=== PATIENT | male | born 1975 ===

== ENCOUNTER 2020-03-07 03:25 | Inpatient (IN) | payer OTHER ==
[~2020-03-07] VITALS: Ht 172.7 cm; Wt 86.6 kg
[2020-03-07 03:42] LABS: BASOPHILS ABSOLUTE AUTO 0.08 K/mm3 (0.00-0.23); BASOPHILS PERCENT AUTO 1 % (0-2); EOSINOPHILS ABSOLUTE AUTO 1.38 K/mm3 (0.00-0.68); EOSINOPHILS PERCENT AUTO 10 % (0-6); Hematocrit 44.8 % (37.0-53.0); Hemoglobin 14.9 g/dL (13.5-17.5); IMMATURE GRAN ABSOLUTE AUTO 0.05 K/mm3 (0.00-0.10); IMMATURE GRAN PERCENT AUTO 0 % (0-1); LYMPHOCYTES ABSOLUTE AUTO 3.06 K/mm3 (0.84-5.20); LYMPHOCYTES PERCENT AUTO 23 % (21-46); MONOCYTES ABSOLUTE AUTO 0.87 K/mm3 (0.16-1.47); MONOCYTES PERCENT AUTO 7 % (4-13); Mean Corpuscular HGB 32.5 pg (26.0-34.0); Mean Corpuscular HGB Conc 33.3 g/dL (31.5-36.5); Mean Corpuscular Volume 98 fL (80-100); Mean Platelet Volume 10.5 fL (9.1-12.4); NEUTROPHILS ABSOLUTE AUTO 7.95 K/mm3 (1.96-9.15); NEUTROPHILS PERCENT AUTO 59 % (41-73); Platelet Count 281 K/mm3 (150-400); RDW Coefficient Variation 13.3 % (11.7-14.2); RDW Standard Deviation 47.7 fL (35.1-46.3); Red Blood Cell Count 4.58 M/mm3 (4.30-5.90); White Blood Cell Count 13.39 K/mm3 (4.00-11.30)
[2020-03-07 03:52] LABS: Source, Urine Clean Catch
[2020-03-07 03:56] LABS: Alanine Aminotransfer (ALT/SGP 25 U/L (12-78); Albumin, Blood 3.2 g/dL (3.4-5.0); Alk Phos 71 U/L (50-136); Anion Gap 10 mmol/L (6-16); Aspartate Aminotrans (AST/SGOT 26 U/L (12-37); Beta HCG, Quantitative, Serum <1 mIU/mL (0-1); Bilirubin, Total 0.6 mg/dL (0.1-1.0); Blood Urea Nitrogen 13 mg/dL (8-24); Bun/Creatinine Ratio 17.2 (12.0-20.0); CO2, Blood 21 mmol/L (21-32); Calcium, Blood 7.9 mg/dL (8.5-10.1); Chloride, Blood 112 mmol/L (98-108); Creatinine, Blood 0.76 mg/dL (0.60-1.20); Ethanol (Alcohol), Blood, Med 52 mg/dL; Globulin, Blood 3.2 g/dL (2.2-4.0); Glomerular Filtration Rate >60 (60-); Glucose, Blood 118 mg/dL (70-99); Potassium, Blood 3.4 mmol/L (3.5-5.5); Sodium, Blood 143 mmol/L (136-145); Total Protein, Blood 6.4 g/dL (6.4-8.2)
[2020-03-07 03:56] LABS: Bilirubin, Urine Neg (Neg); Blood, Urine 1+ (Neg); Glucose Qualitative, Urine Neg (Neg); Ketones, Urine 2+ (Neg); Leukocyte Esterase, Urine Neg (Neg); Nitrite, Urine Neg (Neg); Protein, Urine 2+ (Neg); Specific Gravity, Urine 1.025 (1.003-1.022); Urobilinogen, Urine 1+ (Normal)
[2020-03-07 03:57] LABS: International Normalized Ratio 0.98; Prothrombin Time Results 10.5 Sec (9.7-11.5)
[2020-03-07 04:06] LABS: Appearance, Urine Clear (Clear); Color, Urine Yellow (P-Yellow)
[2020-03-07 04:07] LABS: Amorphous Light (0-Heavy); Bacteria Not Seen /hpf; Mucus Light (0-Heavy); Squamous Epithelial Cells Not Seen /hpf (Few); White Blood Cells, Urine Not Seen /hpf (0-5)
[2020-03-07 05:24] LABS: U Amphetamine Screen Not Detected; U Barbituate Screen Not Detected; U Benzodiazapine Screen Not Detected; U Buprenorphine Screen Not Detected; U Cannabinoids Screen DETECTED; U Cocaine Screen DETECTED; U Methadone Screen Not Detected; U Methamphetamine Screen Not Detected; U Opiates Screen Not Detected; U Oxycodone Screen Not Detected; U Phencyclidine Screen Not Detected; U Propoxyphene Screen Not Detected
--- NOTE | 2020-03-07 06:39 | NUR ---
PATIENT ARRIVED FROM ER VIA STRETCHER. PATIENT TRYING TO PULL TUBES AND SIT UP; PROPOFOL DRIP UP TO 70MCG/KG/MIN. PATIENT LIFTED TO ICU BED BY FIVE STAFF MEMBERS WITH C-SPINE PRECAUTIONS MAINTAINED. PATIENT INTUBATED AND CONNECTED TO VENTILATOR BY RESPIRATORY THERAPY. OGT CONNECTED TO LIWS. ALMONTE CATH. PATENT DRAINING CLEAR, YELLOW URINE. BILATERAL WRIST RESTRAINTS IN PLACE TO PREVENT PATIENT FROM PULLING OUT TUBES. PRECEDEX DRIP STARTED AT 0.7MCG/KG/HR. PATIENT HOOKED UP TO MONITOR. HR 150'S, ATRIAL FIB.; BP STABLE. REPORT GIVEN TO RAVEN ARGUELLO WHO WILL ASSUME CARE.
--- NOTE | 2020-03-07 07:43 | NUR ---
Received report from Ana CARBAJAL. Patient intubated and sedated. He has 7.5 ET and 25cm at teeth, vent settings AC 16, TV 450, FiO2 40% PEEP 5.0 and sats >90%. He has 18ga LH dressing intact and site WNL's and is flushed and SL'd. He also has 20ga IV in RW dressing intact and site WNL's and is infusing Propofol at 70 mcg/kg/min and Precedex 0.7 mcg/kg/hr and is presently calm, tried to wean and started fight in bed and reincreased to starting dose.He has 16Fr temp farley draining to gravity and temp in 97.8. MAEW. C -Collar in place and won't be cleared until post extubation to see if patient c/o neck pain per Dr Gupta. He is in bilateral soft wrist restraints for line and tube safety. He has bite make midline forehead and Dr Gupta starting on ABX and no current bleeding with mild swelling.
--- NOTE | 2020-03-07 09:37 | NUR ---
Patient remains sedated and intubated. Added Phenylepherine titrated up to 60 mcg/min for current systolic 113 and MAP >65. Propofol at 70 mcg/kg/min and Precedex at 0.7 mcg/kg/hr and patient resting well. He remains in A-Fib rate 110-140's. No vent setting changes and sats >95%.
--- NOTE | 2020-03-07 11:44 | NUR ---
gifts officer came to ICU with warrant for bodily search and blood drawn and bodily swabs as per warrant and copy on chart. No changes with vent, gtt setting and he continues to rest with sedation. VSS. See EMR
--- NOTE | 2020-03-07 13:30 | NUR ---
plaster whittler placed PICC line SHELBY. Moved lines to PICC. Propofol remains at 70 mcg/kg/min, Phenylepherine 60 mcg/min, and Precedex at 0.7 mcg/kg/hr. Temp on the increase 100.4 and he is diaphoretic. No signs of grimacing or pain. No vent setting changes, patient continues to have moderate thick secretions through ET. VSS, See EMR.
--- NOTE | 2020-03-07 16:33 | NUR ---
Patient continues to have 100,8 temp and diaphoresis and called Dr Vines and EKG done, troponins, lorazepam 4mg ordered. No real changes in VS and no chnages in vent or gtt setting except Precedex on standby to see in causing temp increase.
--- NOTE | 2020-03-07 18:25 | NUR ---
No changes in patient. Remains on Vent settings AC 16, TV 450, FiO2, PEEP 5.0 and sats >90%. PICC NORY Phenylepherine 60 mcg/min, Propofol at 70 mcg/kg/min and Precedex is on standby for increased temp, and has come down to 99.5 since off. He has 16fr Temp farley that has had 2600ml yellow urine. Ice packs have been in groin and arm pits for last 4 hours. Patient remains in C-collar and is supine in bed.
--- NOTE | 2020-03-07 19:00 | NUR ---
ASSUMED CARE OF PATIENT. RECEIVED REPORT FROM RAVEN ARGUELLO. PATIENT REMAINS INTUBATED ON VENTILATOR; SEDATED WITH PROPOFOL AT 70MCG/KG/MIN; PRECEDEX ON STAND-BY. RHYTHM: ATRIAL FIB., 110'S; MARIANNA DRIP ON 60MCG/MIN TO MAINTAIN MAP >65. BILATERAL WRIST RESTRAINTS IN PLACE TO PREVENT PATIENT PULLING LINES/TUBES. C-COLLAR IN PLACE. ALMONTE CATH. PATENT DRAINING CLEAR, YELLOW URINE. CONTINUE POC.
--- NOTE | 2020-03-07 20:15 | NUR ---
CALLED DR. HOGAN TO REQUEST ORDERS FOR PRN TYLENOL, PRN ATIVAN, AND IV FLUIDS; REC'D. ABOVE ORDERS.
--- NOTE | 2020-03-07 22:34 | NUR ---
PATIENT APPEARS TO BE USING ACCESSORY MUSCLES WITH RESPIRATIONS, TACHYPNEIC, SATS 91% ON FIO2 OF 35%. PATIENT SUCTIONED WITH COPIOUS AMOUNTS OF THICK, WHITE SECRETIONS OBTAINED; PATIENT BECAME RED IN THE FACE AND COUGHING FOR ABOUT FIVE MINUTES AFTER SUCTIONING; PATIENT GIVEN 100% FIO2 DURING EPISODE. PRECEDEX DRIP TURNED BACK ON AT 0.4MCG/KG/HR AND PATIENT GIVEN ATIVAN 2MG IV FOR SEDATION. BREATH SOUNDS AUSCULTATED AFTER SUCTIONING-PATIENT HAS SCATTERED RHONCHI WITH EXPIRATORY WHEEZES IN UPPER LOBES. RT CALLED AND AT BEDSIDE; RT RECOMMENDATION IS FOR NEBULIZER TREATMENTS. CALLED DR. HOGAN; UPDATED ON ABOVE; REC'D. ORDER FOR ALBUTEROL NEBULIZER TREATMENTS. FIO2 TURNED UP TO 40%.
[2020-03-08 04:05] LABS: BASOPHILS ABSOLUTE AUTO 0.09 K/mm3 (0.00-0.23); BASOPHILS PERCENT AUTO 0 % (0-2); EOSINOPHILS ABSOLUTE AUTO 0.43 K/mm3 (0.00-0.68); EOSINOPHILS PERCENT AUTO 2 % (0-6); Hematocrit 47.3 % (37.0-53.0); Hemoglobin 15.5 g/dL (13.5-17.5); IMMATURE GRAN ABSOLUTE AUTO 0.09 K/mm3 (0.00-0.10); IMMATURE GRAN PERCENT AUTO 0 % (0-1); LYMPHOCYTES ABSOLUTE AUTO 3.77 K/mm3 (0.84-5.20); LYMPHOCYTES PERCENT AUTO 19 % (21-46); MONOCYTES ABSOLUTE AUTO 1.55 K/mm3 (0.16-1.47); MONOCYTES PERCENT AUTO 8 % (4-13); Mean Corpuscular HGB 32.6 pg (26.0-34.0); Mean Corpuscular HGB Conc 32.8 g/dL (31.5-36.5); Mean Corpuscular Volume 100 fL (80-100); Mean Platelet Volume 10.7 fL (9.1-12.4); NEUTROPHILS ABSOLUTE AUTO 14.45 K/mm3 (1.96-9.15); NEUTROPHILS PERCENT AUTO 71 % (41-73); Platelet Count 271 K/mm3 (150-400); RDW Coefficient Variation 13.3 % (11.7-14.2); RDW Standard Deviation 49.9 fL (35.1-46.3); Red Blood Cell Count 4.75 M/mm3 (4.30-5.90); White Blood Cell Count 20.38 K/mm3 (4.00-11.30)
[2020-03-08 04:32] LABS: Alanine Aminotransfer (ALT/SGP 24 U/L (12-78); Albumin/Globulin Ratio 0.9 (0.8-1.8); Alk Phos 60 U/L (50-136); Anion Gap 5 mmol/L (6-16); Aspartate Aminotrans (AST/SGOT 34 U/L (12-37); Bilirubin, Total 0.9 mg/dL (0.1-1.0); Blood Urea Nitrogen 7 mg/dL (8-24); Bun/Creatinine Ratio 10.4 (12.0-20.0); CO2, Blood 28 mmol/L (21-32); Calcium, Blood 8.2 mg/dL (8.5-10.1); Chloride, Blood 112 mmol/L (98-108); Creatinine, Blood 0.67 mg/dL (0.60-1.20); Globulin, Blood 3.3 g/dL (2.2-4.0); Glomerular Filtration Rate >60 (60-); Glucose, Blood 115 mg/dL (70-99); Phosphorus, Blood 3.6 mg/dL (2.5-4.9); Potassium, Blood 4.2 mmol/L (3.5-5.5); Sodium, Blood 145 mmol/L (136-145); Total Protein, Blood 6.3 g/dL (6.4-8.2)
--- NOTE | 2020-03-08 06:36 | NUR ---
SHIFT SUMMARY: PATIENT REMAINS INTUBATED AND SEDATED ON PROPOFOL 70 MCG/KG/MIN AND PRECEDEX 0.7 MCG/KG/HR; GIVEN ONE DOSE OF PRN ATIVAN 2 MG IV. MARIANNA DRIP AT 40 MCG/MIN WITH MAP >65. RHYTHM ATRIAL FIB., RATE 100-140'S. PATIENT SPIKED TEMP. OF 100.8; GIVEN TYLENOL 650 MG PGT. ENTERAL FEEDINGS STARTED LAST NIGHT; VITAL HIGH PROTEIN, AT GOAL 0F 35 CC/HR; ABDOMEN SLIGHTLY DISTENDED, SOFT WITH ACTIVE BOWEL SOUNDS. ALMONTE CATH. PATENT DRAINING CLEAR, YELLOW URINE. PATIENT GIVEN ONE LITRE OF LR IV FLUID OVER FIVE HOURS. BILATERAL WRIST RESTRAINTS IN PLACE TO PREVENT PATIENT FROM PULLING LINES/TUBES. C-COLLAR IN PLACE; C-SPINE PRECAUTIONS MAINTAINED. LABS DRAWN THIS AM AND PORTABLE CXR DONE. AWAITING DAYSHIFT RN FOR HANDOFF.
--- NOTE | 2020-03-08 07:34 | NUR ---
Receieved report from Ana CARBAJAL. Patient in reverse trendelenberg position intubated and sedated. His vent settings are 7.5 ET 25 cm at teeth, AC 16, TV 450, FiO2 25%, PEEP 5.0 and sats 94%. He has LUAQ PICC dressing intact and site WNL's and is infusing Propofol at 70 mcg/kg/min, Phenylepherine at 60 mcg/min, Precedex at 0.7 mcg/kg/hr. He has 16Fr Temp Baptiste draing to gravity yellow urine and temp of 100.8. OG in place infusing VHP at goal 35ml/hr and 30 ml water flush q4. EMS C-Collar in place until patient awakens to verbalize no pain. He also has 18ga IV LH and 20ga IV RW both flushed and SL'd. He is in bilateral soft wrist restraints for line and tube safety.
--- NOTE | 2020-03-08 09:46 | NUR ---
Patient remains sedated. Phenylepherine reduced to 20mcg/min for systolics 140's. Propofol reduced to 60mcg/kg/min, Precedex remains at 0.7 mcg/kg/hr. No vent setting changes and continue to suction intermitent copius amounts of thick headley secretions, Received different C-Collar and ok with Dr Gupta to change sout for more comfort.
--- NOTE | 2020-03-08 11:30 | NUR ---
Patient continues on sedation, Phenylepherine at 20mcg/min with systolics 90-100's,l HR 120-140's and Dr Vines knows.No vent setting changes. Continues to have moderate secretions and has coughing spells and calms quickly. Sats 95>
--- NOTE | 2020-03-08 15:30 | NUR ---
Pushed 20mg Diltiazem and HR dropped to 70's and remains for about an hour before starting to increase. No changes in Vent setting and Current Phenylepherine is at 30 mcg/min with systolics 120's, no other gtt changes.
--- NOTE | 2020-03-08 16:48 | NUR ---
Patient remains intubated and sedated with 60 mcg/kg/min Propofol and 0.7 mcg/kg/hr of Precedex. Phenylepherine is titrating back and forth from 20-40 mcg/min to maintain systolic >100 and HR 120-[address] Vines and we are going to try 20mg Diltiazem push. Tube feeding VHP continues and increased to 40ml/hr goal with 40 ml residual re infused.. Baptiste continues to have yellow urine out put. Gave Tylenol and temp decreaseing to 99.5.
--- NOTE | 2020-03-08 18:43 | NUR ---
Started Diltiazem Gtt at 10 mg/hr for HR 140's. Vent settings AC 16, TV 450. FiO2 30%, PEEP 5.0. SHELBY PICC infusing Propofol 60mcg/kg/min, Precedex 0.7 mcg/kg/hr, Phenylepherine 30 mcg/min, NS TKO. 16Fr temp Baptiste 1350 yellow urine out and temp has decresed to 97.9.. Remains in A-fib 80's and Diltiazem gtt at 15 mg/hr. He remains in bilateral soft wrist restraints.
--- NOTE | 2020-03-08 19:00 | NUR ---
ASSUMED CARE OF PATIENT. REC'D. REPORT FROM RAVEN ARGUELLO. PATIENT REMAINS INTUBATED AND SEDATED ON PROPOFOL AT 60 MCG/KG/MIN AND PRECEDEX AT 0.7 MCG/KG/HR. RHYTHM: ATRIAL FIB.; DILTIAZEM DRIP INFUSING AT 15MG/HR AND MARIANNA DRIP INFUSING AT 30 MCG/MIN WITH MAP >65. BILATERAL WRIST RESTRAINTS IN PLACE TO PREVENT PATIENT FROM PULLING LINES/TUBES. TUBE FEEDINGS, VITAL HIGH PROTEIN, INFUSING AT 40 CC/HR. CONTINUE CURRENT POC.
--- NOTE | 2020-03-09 03:50 | NUR ---
PATIENT RHYTHM CONVERTED TO SINUS RHYTHM, RATE 90'S. PATIENT REMAINS ON DILTIAZEM AT 5MG/HR IV.
[2020-03-09 04:07] LABS: BASOPHILS ABSOLUTE AUTO 0.08 K/mm3 (0.00-0.23); BASOPHILS PERCENT AUTO 1 % (0-2); EOSINOPHILS ABSOLUTE AUTO 0.92 K/mm3 (0.00-0.68); EOSINOPHILS PERCENT AUTO 5 % (0-6); Hematocrit 46.6 % (37.0-53.0); Hemoglobin 15.5 g/dL (13.5-17.5); IMMATURE GRAN ABSOLUTE AUTO 0.06 K/mm3 (0.00-0.10); IMMATURE GRAN PERCENT AUTO 0 % (0-1); LYMPHOCYTES ABSOLUTE AUTO 2.88 K/mm3 (0.84-5.20); LYMPHOCYTES PERCENT AUTO 17 % (21-46); MONOCYTES ABSOLUTE AUTO 1.21 K/mm3 (0.16-1.47); MONOCYTES PERCENT AUTO 7 % (4-13); Mean Corpuscular HGB 32.7 pg (26.0-34.0); Mean Corpuscular HGB Conc 33.3 g/dL (31.5-36.5); Mean Corpuscular Volume 98 fL (80-100); Mean Platelet Volume 11.1 fL (9.1-12.4); NEUTROPHILS ABSOLUTE AUTO 11.89 K/mm3 (1.96-9.15); NEUTROPHILS PERCENT AUTO 70 % (41-73); Platelet Count 242 K/mm3 (150-400); RDW Coefficient Variation 13.2 % (11.7-14.2); RDW Standard Deviation 48.6 fL (35.1-46.3); Red Blood Cell Count 4.74 M/mm3 (4.30-5.90); White Blood Cell Count 17.04 K/mm3 (4.00-11.30)
[2020-03-09 04:21] LABS: Anion Gap 4 mmol/L (6-16); Blood Urea Nitrogen 9 mg/dL (8-24); Bun/Creatinine Ratio 13.1 (12.0-20.0); CO2, Blood 27 mmol/L (21-32); Chloride, Blood 113 mmol/L (98-108); Creatinine, Blood 0.69 mg/dL (0.60-1.20); Glomerular Filtration Rate >60 (60-); Glucose, Blood 132 mg/dL (70-99); Potassium, Blood 3.6 mmol/L (3.5-5.5); Sodium, Blood 144 mmol/L (136-145)
--- NOTE | 2020-03-09 06:34 | NUR ---
SHIFT SUMMARY: PATIENT REMAINS INTUBATED AND SEDATED WITH PROPOFOL AT 70MCG/KG/MIN AND PRECEDEX 0.7MCG/KG/HR. RESPIRATIONS 25-30 ON VENT SETTINGS OF AC 16, TV 450, PEEP 5, AND FIO2 25%; MEDICATED WITH ATIVAN 2MG IV X 2 DOSES FOR TACHYPNEA; BREATH SOUNDS WITH RHONCHI OVER BILATERAL UPPER LOBES AND DIMINISHED IN BASES. RHYTHM CONVERTED TO SINUS RHYTHM AT 0350; CARDIZEM DRIP AT 5MG/HR. MARIANNA. DRIP AT 30MCG/MIN WITH MAP >65. ENTERAL FEEDINGS VIA OG WITH VITAL HIGH PROTEIN AT 40CC/HR WITH WATER FLUSHES OF 30CC Q4H; RESIDUALS 10CC; ABDOMEN SLIGHTLY DISTENDED WITH TYMPANIC BOWEL SOUNDS; SMALL SMEAR OF STOOL. ALMONTE CATH. PATENT DRAINING SANDIP URINE WITH FLECKS OF RED/ORANGE NOTED IN TUBING. C-COLLAR IN PLACE WITH C-SPINE PRECAUTIONS MAINTAINED. BILATERAL WRIST RESTRAINTS IN PLACE TO PREVENT PULLING LINES/TUBES. CONTINUE POC. AWAITING DAY SHIFT RN FOR HANDOFF.
--- NOTE | 2020-03-09 08:05 | NUR ---
Received report from Ana CARBAJAL. Patient in reverse trendelenberg position, approx. 20 degrees. He is intubated and sedated and vent settings AC 16, TV 450, FiO2 30% PEEP 5 and sats >95%. He has copius amounts of thisck headley secretion from ET. He has PICC line to SHELBY and and dressing intact and site WNL's and is infusing Propofol 70 mcg/kg/min. Precedex 0.7 mcg/kg/hr, Phenylepherine 30 mcg/min, Diltiazem 5 mg/m/hr, NS TKO. OG in place and is infusing VHP at 40 ml/hr with 30 ml water flushes q4hr.He has two IV's LH and RW dressings intact and sites WNL's and have been flushed and SL'd. He is in soft bilateral wrist restraints. C-collar in place and will remains until extubation. He has 16Fr Temp farley draining to gravity light dai colored urine and temp. 99.5 degrees F.
--- NOTE | 2020-03-09 09:30 | NUR ---
Dr Najera by and gave update. No changes with vent or gtt's. On current vent setting sats >95%. Patient remains in SR from Noc shift conversion.
--- NOTE | 2020-03-09 10:13 | NUR ---
Placed Propofol and Cardizem on hold as per Dr Najera. Increased Precedex to 1.4 mcg/kg/hr per Dr Najera for test wean. He is on Spon. mode and PS 10 FiO2 25% with sats >94%. no current movements from him as of yet.
--- NOTE | 2020-03-09 11:58 | NUR ---
PS reduced to 5 and no other changes. Propofol remains on standby and he is able to follow commands, and is calm and cooperating with care. VSS, See EMR. Precedex remains at 1.4 mcg/kg/hr, Diltiazem remains on standby. TF continues at 40ml/hr of VHP.
--- NOTE | 2020-03-09 12:35 | NUR ---
Patient has been on spontaneous mode for awhile and tolerated well. He was extubated at 1230 and placed on 4 L O2 via NC and sats >95%. Restraints left on as he was pulling at farley and lines. Phenylepherine on standby and systolic 120's and ST 110-120's.
--- NOTE | 2020-03-09 12:43 | NUR ---
Dr Najera had Erich Mckenzie RN call and find out what is the rights r/t HIPAA (Health Insurance Portability & Accountability Act) in regards to Peace officers request to notified for them to talk with patient as they have called twice daily. Call was made to Hong Henderson and stated that they would need warrant to get patient information and made call as requested by Hong Henderson communicated to Dr Najera and Erich Mckenzie RN to me to see if they had warrant. The answer was "No" by [employer] manager marketing communication. Officer Mai called for his daily check, and told him that he would need a warrant per our policy of HIPAA and he stated he understood. Two officers came by to check on patient to see if they could interview and talked with him briefly on camera. Patiet stated it was ok to talk with staff and release medical information to law enforcement officers and talked with Dr Najera. Officers stated they would come back in around 30 minutes and ask the patient once again to verify that his mental status is clear enough to make that decision. Anastacia Oreilly RN and Dr Najera present at time of this encounter. Patient now resting quietly.
--- NOTE | 2020-03-09 14:00 | NUR ---
Patient has been rest and reduced to RA and sats >94%. He is very hoarse with speech and breathing. VSS, See EMR. He has NS TKO and Precedex 1.4 mcg/kg/hr. He has mostly been cooperative with care to best of his ability. His mother and father both called. Peace officers have not been back.We will continue farley until patient is a little clearer. He remains in bilateral soft wrist until clearer and stops pulling at lines and farley. MAEW but weak.
--- NOTE | 2020-03-09 15:52 | NUR ---
Patient resting. Mother is coming into see him. Repositioned. C-collar stays in place until am when surgeon clears.Bilateral soft wrist restraints remains for line and tube safety. He is able ot communicate his needs with soft hoarse voice. Precedex 1.4 mcg/kg/hr and NS TKO.
--- NOTE | 2020-03-09 18:50 | NUR ---
Mother at bedside. He is on RA and sats 96%. He has C-collar in place until Dr Gupta states OK to remove. 16 [address] temp [address]ley in place draining to gravity and temp 99.5. He remains in restraints until fully awake and is not pulling at lines and tubes. He is on Precedex at 1.4 mcg/kg/hr and just reduced to 10 mcg/kg/hr. He is able to communicate his needs with very hoarse voice.
--- NOTE | 2020-03-09 20:00 | NUR ---
PATIENT AWAKE VOICE HORSE AND DIFFICULT TO UNDERSTAND AT TIMES, ORIENTATED TO PERSON ONLY THINKING THAT HE IS AT THE " [place] " PLAN TO CONTINUE TO REORIENT PATIENT ABLE, PATIENT GETTING RESTLESS AT TIMES PULLING AT Collar AND LINES. BILAT WRIST RESTRAINTS IN PLACE TO PROTECT LINES, TUBES, AND Collar. PRECEDEX DRIP CONTINUES TO HELP PATIENT RELAX. MOIST COUGH WITH COARSE WHEEZES, PRODUCING THICK ROWLAND SPUTUM.
--- NOTE | 2020-03-09 21:36 | NUR ---
DOCTOR SAMSON IN TO SEE PATIENT, REMOVED C-COLLAR. PATIENT CONTINUES TO BE AGITATED OFF AND ON. PRECEDEX CONTINUES.
--- NOTE | 2020-03-10 00:49 | NUR ---
SPEECH IS GETTING CLEARER AND PATIENT MORE RELAXED, CONTINUES TO SPONTANEOUSLY PULL AT LINES AND CORDS WHEN UPSET. LUNG SOUND WITH EXP WHEEZES T/O RT CALLED FOR UDN. CONTINUES TO HAVE MOIST COUGH WITH THICK ROWLAND SPUTUM.
[2020-03-10 04:29] LABS: BASOPHILS ABSOLUTE AUTO 0.08 K/mm3 (0.00-0.23); BASOPHILS PERCENT AUTO 1 % (0-2); EOSINOPHILS PERCENT AUTO 7 % (0-6); Hematocrit 40.1 % (37.0-53.0); Hemoglobin 13.6 g/dL (13.5-17.5); IMMATURE GRAN ABSOLUTE AUTO 0.06 K/mm3 (0.00-0.10); IMMATURE GRAN PERCENT AUTO 1 % (0-1); LYMPHOCYTES ABSOLUTE AUTO 2.51 K/mm3 (0.84-5.20); LYMPHOCYTES PERCENT AUTO 20 % (21-46); MONOCYTES ABSOLUTE AUTO 0.94 K/mm3 (0.16-1.47); MONOCYTES PERCENT AUTO 7 % (4-13); Mean Corpuscular HGB 33.3 pg (26.0-34.0); Mean Corpuscular HGB Conc 33.9 g/dL (31.5-36.5); Mean Corpuscular Volume 98 fL (80-100); NEUTROPHILS ABSOLUTE AUTO 8.37 K/mm3 (1.96-9.15); NEUTROPHILS PERCENT AUTO 65 % (41-73); Platelet Count 211 K/mm3 (150-400); RDW Coefficient Variation 13.1 % (11.7-14.2); Red Blood Cell Count 4.09 M/mm3 (4.30-5.90); White Blood Cell Count 12.86 K/mm3 (4.00-11.30)
[2020-03-10 04:44] LABS: Anion Gap 6 mmol/L (6-16); Blood Urea Nitrogen 6 mg/dL (8-24); Bun/Creatinine Ratio 9.1 (12.0-20.0); CO2, Blood 26 mmol/L (21-32); Calcium, Blood 7.6 mg/dL (8.5-10.1); Chloride, Blood 110 mmol/L (98-108); Creatinine, Blood 0.66 mg/dL (0.60-1.20); Glomerular Filtration Rate >60 (60-); Glucose, Blood 94 mg/dL (70-99); Potassium, Blood 3.1 mmol/L (3.5-5.5); Sodium, Blood 142 mmol/L (136-145)
--- NOTE | 2020-03-10 08:39 | NUR ---
ASSUMED CARE OF PT AT 0700. REPORT FROM KASSIE CARBAJAL. PT RESTING IN BED. WAKES c VERBAL STIMULI. A&OX 3. ANSWERS QUESTIONS APPROPRIATELY. FOLLOWS SIMPLE COMMANDS. APPEARS TO FALL ASLEEP WHEN UNDISTURBED. PT C/O BACK PAIN, STATES PAIN 10/10. DENIES CHRONIC PAIN. MEDICATED c FENTANYL PRN. PRECEDEX INFUSING AT 0.5 MCG/KG/HR. WILL MONITOR FOR ETOH WITHDRAWLS. LUNGS COARSE c EXPIRATORY WHEEZES. PRODUCTIVE COUGH, ROWLAND SPUTUM. ABLE TO MANAGE SECRETIONS. PT ABLE TO REPOSITION SELF INDENDENTLY IN BED. VSS. ALMONTE PATENT AND DRAINING SANDIP URINE TO GRAVITY. WILL CONTINUE TO MONITOR.
--- NOTE | 2020-03-10 16:45 | NUR ---
SHIFT SUMMARY/TRANSFER TO MEDICAL FLOOR PT STATUS CHANGED TO MED c TELE THIS SHIFT. CRITICAL CARE SIGNED OFF. PT A&OX 3. ANSWERS QUESTIONS APPROPRIATELY. USES CALL LIGHT. ABLE TO MAKE NEEDS KNOWN. WORKED c PHYSICAL THERAPY TODAY. PT RELUCANT TO GET OUT OF BED D/T BACK PAIN. STATES PAIN 10/10. DENIES RELIEF FROM FENTANYL, ATIVAN OR TYLENOL. DENIES CHRONIC BACK PAIN. ENCOURAGED PT TO MOVE. PT ABLE TO STAND AND TRANSFER INDEPENDENTLY TO BATHROOM IN ROOM. GAGE FRANKEL REMOVED THIS SHIFT. VSS. REPORT TO SNEHA CARBAJAL. PENDING TRANSFER TO MEDICAL FLOOR. NO BELONGINGS IN ROOM. PT'S DRIVERS LICENSE ON CHART.
--- NOTE | 2020-03-10 17:37 | NUR ---
PT ARRIVED TO THE MEDICAL FLOOR FROM THE ICU, A/OX3, COOPERATIVE, PT WAS UP WITH ASSIST TO THE BED, PT REPORTED 10/10 PAIN IN HIS BACK AND NECK, ADVIL GIVEN, THE PT WAS ORIENTED TO THE ROOM LAYOUT AND CALL SYSTEM, PT WAS ASSISTED IN CALLING HIS MOTHER, SUCTION WAS SET UP AT THE BEDSIDE, PT HAS A WET LOOSE PRODUCTIVE COUGH AT TIMES, CALL LIGHT IN REACH, RASHAD IS AT THE DOORWAY
--- NOTE | 2020-03-10 19:35 | NUR ---
ASSUMED CARE. MOTHER IS AT BEDSIDE. PATIENT REPORTS PAIN ALL OVER 10/10. DOES NOT APPEAR IN ANY DISCOMFORT, ABLE TO TALK AND MOVE WITH OUT MOANING OR GRIMACING. LUNG SOUNDS COURSE WITH WHEEZES IN UPPER LOBES. COUGH PRODUCTIVE WHITE THICK SPUTUM. HR SINUS AT THIS TIME. ABLE TO STATE ORIENTATION. STATES SWALLOWING IS GETTING BETTER, BUT STILL FEELS SORE. VOICE IS SCRATCHY. SUCTION IS AT BEDSIDE. GAVE OJ PER PT REQUEST. WILL CALL MD REGARDING PAIN MANAGMENT. CALL LIGHT IN REACH.
--- NOTE | 2020-03-10 19:55 | NUR ---
SPOKE TO CAESAR VYAS TO GET ORDER FOR PAIN MEDICATION. JOSE ORDERED.
--- NOTE | 2020-03-10 22:27 | NUR ---
ATIVAN GIVEN FOR INCREASE IN ANXIETY AND HULLUCINATIONS.
--- NOTE | 2020-03-11 01:11 | NUR ---
SPOKE TO DR. MONTANO REGARDING PAIN MANAGMENT AND SLEEP. INFORMED OF HULLUCIANTIONS AND THAT THE PATIENT IS REQUESTING BETTER PAIN MEDS. ORDER FOR FENTANYL AND MELATONIN ORDERED. GAVE 50 OF FENTANYL.
[2020-03-11 04:27] LABS: Hematocrit 42.7 % (37.0-53.0); Hemoglobin 14.4 g/dL (13.5-17.5); Mean Corpuscular HGB 32.5 pg (26.0-34.0); Mean Corpuscular HGB Conc 33.7 g/dL (31.5-36.5); Mean Corpuscular Volume 96 fL (80-100); Mean Platelet Volume 10.6 fL (9.1-12.4); Platelet Count 275 K/mm3 (150-400); RDW Coefficient Variation 12.7 % (11.7-14.2); Red Blood Cell Count 4.43 M/mm3 (4.30-5.90); White Blood Cell Count 10.78 K/mm3 (4.00-11.30)
[2020-03-11 04:45] LABS: Alanine Aminotransfer (ALT/SGP 36 U/L (12-78); Albumin, Blood 2.9 g/dL (3.4-5.0); Albumin/Globulin Ratio 0.7 (0.8-1.8); Alk Phos 58 U/L (50-136); Anion Gap 4 mmol/L (6-16); Aspartate Aminotrans (AST/SGOT 47 U/L (12-37); Bilirubin, Total 1.4 mg/dL (0.1-1.0); Blood Urea Nitrogen 6 mg/dL (8-24); Bun/Creatinine Ratio 8.9 (12.0-20.0); CO2, Blood 28 mmol/L (21-32); Calcium, Blood 8.8 mg/dL (8.5-10.1); Chloride, Blood 110 mmol/L (98-108); Creatinine, Blood 0.68 mg/dL (0.60-1.20); Globulin, Blood 4.2 g/dL (2.2-4.0); Glomerular Filtration Rate >60 (60-); Glucose, Blood 93 mg/dL (70-99); Magnesium, Blood 1.9 mg/dL (1.6-2.4); Potassium, Blood 3.6 mmol/L (3.5-5.5); Sodium, Blood 142 mmol/L (136-145); Total Protein, Blood 7.1 g/dL (6.4-8.2)
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
--- NOTE | 2020-03-11 15:41 | NUR ---
PT IS A/OX3, COOPERATIVE, THE PT IS UP IND IN HIS ROOM, THE PT APPEARS TO BE BREATHING EASILY ON RA AT THIS TIME, PT CONTINUES TO HAVE A LOOSE PRODUCTIVE COUGH, PT HAS SUCTION AT THE BEDSIDE, THE PT CONTINUES TO REPORT PAIN 10/1O T/O OUT THE DAY IN HIS BACK AND HIS NECK, THE PT WORKED WITH THE PHYSICAL THERAPIST TODAY, DECLINED THE OCCUPATIONAL THERAPIST AT THIS TIME, THE PT WAS MEDICATED FOR PAIN T/O THE DAY, CALL LIGHT IN REACH, NO OTHER CHANGES NOTICED SO FAR THIS SHIFT
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
--- NOTE | 2020-03-11 22:50 | NUR ---
SPOKE TO DR. DAVILA REGARDING PAIN MANAGMENT. PATIENT REPORTS PAIN 10/10 EVEN AFTER FENTANYL WAS GIVEN. DISCUSSED PLACING HIM ON HYDROCODONE FOR PAIN, AND DCING FENTANYL. HE AGREED. WILL TRY THIS OUT.
[2020-03-12 05:25] LABS: BASOPHILS ABSOLUTE AUTO 0.09 K/mm3 (0.00-0.23); BASOPHILS PERCENT AUTO 1 % (0-2); EOSINOPHILS PERCENT AUTO 5 % (0-6); Hematocrit 44.1 % (37.0-53.0); Hemoglobin 15.1 g/dL (13.5-17.5); IMMATURE GRAN ABSOLUTE AUTO 0.07 K/mm3 (0.00-0.10); IMMATURE GRAN PERCENT AUTO 1 % (0-1); LYMPHOCYTES ABSOLUTE AUTO 2.27 K/mm3 (0.84-5.20); LYMPHOCYTES PERCENT AUTO 20 % (21-46); MONOCYTES ABSOLUTE AUTO 1.39 K/mm3 (0.16-1.47); MONOCYTES PERCENT AUTO 12 % (4-13); Mean Corpuscular HGB Conc 34.2 g/dL (31.5-36.5); Mean Corpuscular Volume 96 fL (80-100); NEUTROPHILS ABSOLUTE AUTO 7.06 K/mm3 (1.96-9.15); NEUTROPHILS PERCENT AUTO 62 % (41-73); Platelet Count 308 K/mm3 (150-400); RDW Standard Deviation 45.5 fL (35.1-46.3); Red Blood Cell Count 4.58 M/mm3 (4.30-5.90); White Blood Cell Count 11.48 K/mm3 (4.00-11.30)
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
[2020-03-12 06:20] LABS: Alanine Aminotransfer (ALT/SGP 58 U/L (12-78); Albumin, Blood 3.3 g/dL (3.4-5.0); Albumin/Globulin Ratio 0.8 (0.8-1.8); Alk Phos 60 U/L (50-136); Anion Gap 7 mmol/L (6-16); Aspartate Aminotrans (AST/SGOT 48 U/L (12-37); Bilirubin, Total 1.2 mg/dL (0.1-1.0); Blood Urea Nitrogen 7 mg/dL (8-24); Bun/Creatinine Ratio 9.7 (12.0-20.0); CO2, Blood 26 mmol/L (21-32); Chloride, Blood 108 mmol/L (98-108); Creatinine, Blood 0.72 mg/dL (0.60-1.20); Globulin, Blood 4.1 g/dL (2.2-4.0); Glomerular Filtration Rate >60 (60-); Glucose, Blood 104 mg/dL (70-99); Potassium, Blood 3.3 mmol/L (3.5-5.5); Sodium, Blood 141 mmol/L (136-145); Total Protein, Blood 7.4 g/dL (6.4-8.2)
--- NOTE | 2020-03-12 11:50 | NUR ---
PT ASKING TO SPEAK TO THE "PEOPLE" OUT IN THE HALLWAY. NO ONE IS THERE AT THIS TIME. COUNTY OFFICER IS NOT ON THE PREMESIS AND PT FAMILY IS NOTE HERE, APPEARS TO BE HAVING AUDITORY HALLUCINATIONS. SOMEWHAT CONFUSED AT THIS TIME, HE LUCIDITY INTERMIXED WITH PERIODS CONFUSION. CALL SIMMONS IN REACH, WILL CONTINUE TO MONITOR.
--- NOTE | 2020-03-12 14:43 | NUR ---
PT WITH INCREASING AGITATION, MEDICATED WITH 2 MG OF ATIVAN. WILL MONITOR
--- NOTE | 2020-03-12 18:37 | NUR ---
NO ACUTE CHANGES NOTED THIS SHIFT, LATEST CIWA WAS 7, WILL CONTINUE TO MONITOR AND REPORT TO ONCOMING RN
--- NOTE | 2020-03-13 02:24 | NUR ---
03/13/20 0130 PT PULLED OFF TELEMETRY AND WANTING TO GO OUTSIDE "TO TALK WITH BRAULIO". RE-ORIENTED PT TO SURROUNDINGS AND HEART MONITOR RE-APPLIED. ENCOURAGE PT TO GET SOME SLEEP. RELUCTANTLY WENT BACK TO BED.
[2020-03-13 07:00] LABS: BASOPHILS ABSOLUTE AUTO 0.09 K/mm3 (0.00-0.23); BASOPHILS PERCENT AUTO 1 % (0-2); EOSINOPHILS ABSOLUTE AUTO 0.76 K/mm3 (0.00-0.68); EOSINOPHILS PERCENT AUTO 6 % (0-6); Hematocrit 47.5 % (37.0-53.0); Hemoglobin 16.1 g/dL (13.5-17.5); IMMATURE GRAN ABSOLUTE AUTO 0.13 K/mm3 (0.00-0.10); IMMATURE GRAN PERCENT AUTO 1 % (0-1); LYMPHOCYTES ABSOLUTE AUTO 3.01 K/mm3 (0.84-5.20); LYMPHOCYTES PERCENT AUTO 24 % (21-46); MONOCYTES ABSOLUTE AUTO 1.39 K/mm3 (0.16-1.47); MONOCYTES PERCENT AUTO 11 % (4-13); Mean Corpuscular HGB 32.5 pg (26.0-34.0); Mean Corpuscular HGB Conc 33.9 g/dL (31.5-36.5); Mean Corpuscular Volume 96 fL (80-100); Mean Platelet Volume 10.5 fL (9.1-12.4); NEUTROPHILS ABSOLUTE AUTO 7.45 K/mm3 (1.96-9.15); NEUTROPHILS PERCENT AUTO 58 % (41-73); Platelet Count 328 K/mm3 (150-400); RDW Coefficient Variation 12.9 % (11.7-14.2); RDW Standard Deviation 45.7 fL (35.1-46.3); Red Blood Cell Count 4.95 M/mm3 (4.30-5.90); White Blood Cell Count 12.83 K/mm3 (4.00-11.30)
[2020-03-13 07:09] LABS: HBSAG SCREEN Negative (Negative); HEP A AB, IGM Negative (Negative); HEP B CORE AB, IGM Negative (Negative); HEP C VIRUS AB <0.1 (0.0-0.9)
[2020-03-13 07:23] LABS: Alanine Aminotransfer (ALT/SGP 118 U/L (12-78); Albumin, Blood 3.2 g/dL (3.4-5.0); Albumin/Globulin Ratio 0.7 (0.8-1.8); Alk Phos 64 U/L (50-136); Anion Gap 8 mmol/L (6-16); Aspartate Aminotrans (AST/SGOT 67 U/L (12-37); Blood Urea Nitrogen 14 mg/dL (8-24); Bun/Creatinine Ratio 18.5 (12.0-20.0); CO2, Blood 26 mmol/L (21-32); Calcium, Blood 9.1 mg/dL (8.5-10.1); Chloride, Blood 108 mmol/L (98-108); Creatinine, Blood 0.76 mg/dL (0.60-1.20); Globulin, Blood 4.4 g/dL (2.2-4.0); Glomerular Filtration Rate >60 (60-); Glucose, Blood 92 mg/dL (70-99); Potassium, Blood 3.9 mmol/L (3.5-5.5); Sodium, Blood 142 mmol/L (136-145); Total Protein, Blood 7.6 g/dL (6.4-8.2)
--- NOTE | 2020-03-13 07:31 | NUR ---
03/13/20 0615 VITALS FLUCTUATING DEPENDING ON ANXIETY/PAIN. WAS UP SEVERAL TIMES WITH AUDITORY AND VISUAL HALLUCINATIONS. RE-ORIENTED TO SURROUNDINGS. ALSO HE REMOVED HEART MONITOR WIRES SEVERAL TIMES WELL. MEDICATED PER AUG WITH CIWA CHECKS AT 11 TWICE.
--- NOTE | 2020-03-13 11:33 | NUR ---
NICOTINE PATCH CAME OFF WITH SHOWER, NEW ONE PLACED AT THIS TIME
--- NOTE | 2020-03-13 14:37 | NUR ---
T/C TO DR SUE, PER PHONE CALL HE WILL BE UP TO SEE PT THIS AFTERNOON
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
[2020-03-14] MEDS ORDERED: ACET325 PO (10:33)
[2020-03-14] MEDS ORDERED: DOXY100 PO (10:34)
[2020-03-14] MEDS ORDERED: ALBU90OI INH (10:34)
[2020-03-14] MEDS ORDERED: METR500 PO (10:35)
[2020-03-14] MEDS ORDERED: IBU600 M1 PO (10:35)
[2020-03-14] MEDS ORDERED: NICO21TP TOP (10:35)
[2020-03-14] MEDS ORDERED: K-Dur20 MEQ PO (10:36)
[2020-03-14] MEDS ORDERED: Seroquel Xr50 MG PO (10:37)
[2020-03-14] MEDS ORDERED: VISBIOME PO (10:38)
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
--- NOTE | 2020-03-14 16:38 | NUR ---
RN CALLED DR CAMPOS OF SURGERY AND CONFIRMED PT CLEAR TO DC ([id number]) AND OK FOR MEDICAL DR TO WRITE DC ORDERS
== END 2020-03-14 11:22 | disposition home or self-care (01) | DRG 922 ==
LOC: ER 03:25 → ICUW 05:50 → ICUE 05:50 → MEDS 05:50 → ICUE 06:35 → MEDS 03-10 17:19
PROVIDERS: Emergency Medicine; Family Medicine; Internal Medicine Critical Care Medicine; Internal Medicine Pulmonary Disease; Nurse Practitioner Acute Care; ADMIT Surgery
PROC: 0BH17EZ Insertion of Endotracheal Airway into Trachea, Via Natural or Artificial Opening (ICD-10-PCS; principal; 2020-03-07)
PROC: 5A1945Z Respiratory Ventilation, 24-96 Consecutive Hours (ICD-10-PCS; 2020-03-07)
PROC: 02HV33Z Insertion of Infusion Device into Superior Vena Cava, Percutaneous Approach (ICD-10-PCS; 2020-03-07)
DX: T71.193A Asphyxiation due to mechanical threat to breathing due to other causes, assault, initial encounter (principal); J96.00 Acute respiratory failure, unspecified whether with hypoxia or hypercapnia; J15.0 Pneumonia due to Klebsiella pneumoniae; R40.2112 Coma scale, eyes open, never, at arrival to emergency department; R40.2212 Coma scale, best verbal response, none, at arrival to emergency department; I48.0 Paroxysmal atrial fibrillation; E83.51 Hypocalcemia; E87.6 Hypokalemia; F12.10 Cannabis abuse, uncomplicated; F14.929 Cocaine use, unspecified with intoxication, unspecified; F19.10 Other psychoactive substance abuse, uncomplicated; R40.2430 Glasgow coma scale score 3-8, unspecified time; R44.1 Visual hallucinations; W50.3XXA Accidental bite by another person, initial encounter; Y09 Assault by unspecified means; F17.210 Nicotine dependence, cigarettes, uncomplicated; I95.2 Hypotension due to drugs
CPT/HCPCS: 31500; 31720; 36569; 51702; 70450; 70491; 71045; 71046; 71250; 80048; 80053; 80074; 81001; 82330; 82947; 83690; 83735; 84100; 84145; 84484; 84702; 85025; 85027; 85610; 87070; 87077; 87186; 87205; 93005; 93010; 94002; 94003; 94640; 94760; 94770; 97110; 97162; 97530; 99285-25; A9270; A9270-GY; C1751; C9113; G0480; J0295; J0330; J1650; J2060; J2250; J2370; J2704; J3010; J3480; J7030; J7040; J7050; J7120; Q9967